=== PATIENT | male | born 1955 | race Caucasian/White ===

== ENCOUNTER 2019-02-01 13:40 | Inpatient (IN) | payer MEDICARE, MEDICAID ==
[~2019-02-01] VITALS: Ht 188 cm; Wt 158.8 kg
--- NOTE | 2019-02-01 06:07 | NUR ---
IV insertion IV access obtained, via clean sterile technique by inserting 22 gauge catheter at right forearm after 3rd attempt. 1st attempt by . 2nd and 3rd by Bettina Covarrubias IV secured properly. No trauma to site. Patient tolerated well. Addendum: 02/02/19 at 0722 by CLAUDIA RATLIFF RN RN date done 02-02-19
[~2019-02-01 13:40] MED LIST: AMLO5TAB15 PO; HYDR25TA4 PO; IBUP800T24 PO; LISI40TA PO; METO-159 PO; SENN-46 PO
[2019-02-01 14:50] LABS: Eosinophils # (auto) 0.2 uL; Lymphocytes # (auto) 1.7 uL; Monocytes # (auto) 0.6 uL; Nucleated Red Blood Cells % 0.1 %; Red Blood Cells 5.04 10^6/uL (4.5-5.90)
[2019-02-01 14:52] LABS: Basophils # (auto) 0 uL; Basophils % (auto) 0.6 % (0.0-2.0); Eosinophils % (auto) 2.6 % (0.0-7.0); Hematocrit 44.7 % (41.0-53.0); Lymphocytes % (auto) 21.4 % (10.0-50.0); Mean Corpuscular Hemoglobin 29.9 pg (28.0-32.0); Mean Corpuscular Hgb Conc. 33.7 g/dL (32.0-36.0); Mean Corpuscular Volume 88.7 fL (80.0-100.0); Monocytes % (auto) 7.6 % (0.0-12.0); Neutrophils # (auto) 5.3 uL; Neutrophils % (auto) 67.8 % (37.0-80.0); White Blood Cell 7.8 10^3/uL (4.4-10.8)
[2019-02-01] MEDS ORDERED: cefTRIAXone 1GM/50ML D5W 50 ML IV ONE (15:00)
[2019-02-01] MEDS ORDERED: CLINDAMYCIN 900MG IV 50 ML IV ONE (15:00)
[2019-02-01 15:07] LABS: Albumin 3.5 g/dL (3.4-5.0); Calcium 8.6 mg/dL (8.5-10.1); Potassium 4.2 mmol/L (3.5-5.1)
[2019-02-01 15:10] LABS: Bilirubin, Total 0.5 mg/dL (0.2-1.0); Total Protein 7.4 g/dL (6.4-8.2)
[2019-02-01] MEDS ORDERED: LIDOCAINE 1% HCL (LOCAL ANESTH.) INJ 20ML MDV IJ ONE (15:15)
[2019-02-01] MEDS ORDERED: TETANUS-DIPTH-ACEL PERTUSSIS 0.5ML SYRG IM ONE (16:00)
[2019-02-01 16:37] LABS: Platelet Count (auto) 498 10^3/uL (140-450)
[2019-02-01] MEDS ORDERED: NITROGLYCERIN 0.4 MG SL TAB SL PRN (18:30)
[2019-02-01] MEDS ORDERED: MORPHINE SULF INJ 2 MG/ML SYRINGE 1ML IV PRN ×2 (18:30)
[2019-02-01] MEDS ORDERED: VANCOMYCIN PER PHARMACY 0 MG IV SCH (18:30)
[2019-02-01] MEDS ORDERED: ONDANSETRON HCL 4 MG/2 ML VIAL IV PRN (18:30)
[2019-02-01] MEDS ORDERED: DOCUSATE SOD 100 MG CAP PO PRN (18:30)
[2019-02-01] MEDS ORDERED: ACETAMINOPHEN 500 MG TAB PO PRN (18:30)
[2019-02-01] MEDS ORDERED: HYDROcodone-ACET 5/325MG TAB PO PRN (18:30)
[2019-02-01] MEDS ORDERED: VANCOMYCIN 1GM/250ML 250 ML IV SCH (19:00)
--- NOTE | 2019-02-01 20:08 | NUR ---
OPENING NOTES RECEIVED PT FROM ED WITH NO SBAR HANDOFF REPORT. PT IS AWAKE, ALERT, AND ORIENTATED X 4 WITH NO S/S OF DISTRESS NOR PAIN. NO S/S OF SOB. FAMILY IS AT BEDSIDE. BED IS IN LOWEST POSITION WITH SIDE RAILS UP X2, BED BRAKE ARE LOCKED AND CALL LIGHT IS WITH IN REACH. HOB IS 30 DEGREES. WILL MONITOR Q 1HR.
[2019-02-01] MEDS ORDERED: APIX2.5T PO (20:59)
[2019-02-01 22:00] VITALS: BP 153/88
[2019-02-01] MEDS: METOPROLOL TARTRATE 25 MG TAB PO SCH (22:26)
[2019-02-01] MEDS: LISINOPRIL 20 MG TAB PO SCH (22:27)
[2019-02-02] MEDS: VANCOMYCIN 1GM/250ML 250 ML IV SCH ×3 (04:59→21:03)
[2019-02-02 05:54] VITALS: BP 131/88
[2019-02-02 06:40] LABS: Basophils # (auto) 0 uL; Hemoglobin 15.1 g/dL (13.5-17.5)
[2019-02-02 06:42] LABS: Basophils % (auto) 0.5 % (0.0-2.0); Eosinophils # (auto) 0.2 uL; Eosinophils % (auto) 2.2 % (0.0-7.0); Hematocrit 45.1 % (41.0-53.0); Lymphocytes # (auto) 1.6 uL; Lymphocytes % (auto) 22.4 % (10.0-50.0); Mean Corpuscular Hgb Conc. 33.5 g/dL (32.0-36.0); Mean Corpuscular Volume 89.6 fL (80.0-100.0); Monocytes # (auto) 0.7 uL; Monocytes % (auto) 9.5 % (0.0-12.0); Neutrophils # (auto) 4.8 uL; Neutrophils % (auto) 65.4 % (37.0-80.0); Red Blood Cells 5.03 10^6/uL (4.5-5.90); Red Cell Distribution Width 14.2 % (11.8-14.3); White Blood Cell 7.3 10^3/uL (4.4-10.8)
[2019-02-02 06:57] LABS: Calcium 8.5 mg/dL (8.5-10.1); Potassium 4.5 mmol/L (3.5-5.1)
[2019-02-02 07:07] LABS: Platelet Count (auto) 489 10^3/uL (140-450)
--- NOTE | 2019-02-02 07:19 | NUR ---
closing notes endorsed care to day shift nurse, Heidi.
[2019-02-02 08:00] VITALS: BP 121/77
[2019-02-02 08:30] VITALS: BP 121/77
[2019-02-02] MEDS: METOPROLOL TARTRATE 25 MG TAB PO SCH ×2 (10:02→22:29)
[2019-02-02] MEDS: ASPirin 81 mg TAB PO SCH (10:02)
[2019-02-02] MEDS: cefTRIAXone 1GM/50ML D5W 50 ML IV SCH (10:02)
[2019-02-02] MEDS: amLODIPine BESYLATE 5 MG TAB PO SCH (10:03)
[2019-02-02] MEDS: FAMOTIDINE 20 MG TAB PO SCH (10:03)
[2019-02-02] MEDS: LISINOPRIL 20 MG TAB PO SCH ×2 (10:03→22:29)
[2019-02-02 12:51] VITALS: BP 147/82
--- NOTE | 2019-02-02 15:00 | NUR ---
Patient's son wants his father moved The [employer] spoke with the son because he wanted to have his father removed from the room because the patient in bed B was having bowel movements. I went to the room and had the son come out so B bed would not hear the conversation. The patient's son was aggravated that the patient in B bed was having bowel movements and the room "smelled so bad it made me gag." He stated he should not have to stay in a room where the patient was "shitting every 2 minutes" loud enough for the patient's in B bed to hear. I told him that the room in which he could move him had family that brought children in and it was decided that we would not move him. Spoke with Jessica and we found a room that the patient could be moved to in 288A that was more compatible. I had moved the patient to room 288A with the help of Dominguez KIM. I thanked him for helping me and the son of the patient said in a high pitch voice, mockingly, "thank you, Dominguez". When I went into the room the patient apologized for his son's behavior.
[2019-02-02 16:48] VITALS: BP 120/74
--- NOTE | 2019-02-02 19:30 | NUR ---
Opening Shift Note Assumed care of patient, awake and alert. No S/S of distress/SOB or pain. Instructed on POC and to call for assist PRN, will continue to monitor for changes Q1hr and PRN.
[2019-02-02 22:00] VITALS: BP 124/74
[2019-02-03 05:00] VITALS: BP 119/63
--- NOTE | 2019-02-03 05:00 | NUR ---
Reminded lab regarding vanco trough which was ordered at 0400. Will continue to monitor.
[2019-02-03 06:28] LABS: Basophils # (auto) 0 uL; Basophils % (auto) 0.7 % (0.0-2.0); Lymphocytes # (auto) 1.7 uL; Monocytes # (auto) 0.5 uL; Neutrophils # (auto) 3.9 uL; White Blood Cell 6.4 10^3/uL (4.4-10.8)
--- NOTE | 2019-02-03 06:28 | NUR ---
Vanco trough is still pending.
[2019-02-03 06:31] LABS: Eosinophils # (auto) 0.2 uL; Eosinophils % (auto) 3.4 % (0.0-7.0); Hematocrit 44.2 % (41.0-53.0); Hemoglobin 14.8 g/dL (13.5-17.5); Lymphocytes % (auto) 26.7 % (10.0-50.0); Mean Corpuscular Hemoglobin 29.7 pg (28.0-32.0); Mean Corpuscular Hgb Conc. 33.5 g/dL (32.0-36.0); Mean Corpuscular Volume 88.7 fL (80.0-100.0); Monocytes % (auto) 8.5 % (0.0-12.0); Neutrophils % (auto) 60.7 % (37.0-80.0); Nucleated Red Blood Cells % 0.1 %; Platelet Count (auto) 439 10^3/uL (140-450); Red Blood Cells 4.98 10^6/uL (4.5-5.90); Red Cell Distribution Width 14.1 % (11.8-14.3)
[2019-02-03 06:37] LABS: Calcium 8.2 mg/dL (8.5-10.1); Potassium 4.2 mmol/L (3.5-5.1)
[2019-02-03 06:39] LABS: BUN/Creatinine Ratio 16.5
--- NOTE | 2019-02-03 06:45 | NUR ---
Informed pharmacy regarding late vanco trough draw. Pharmacy stated they will reschedule it.
[2019-02-03 08:00] VITALS: BP 126/84
[2019-02-03 09:00] VITALS: BP 126/84
[2019-02-03] MEDS: ASPirin 81 mg TAB PO SCH (10:21)
[2019-02-03] MEDS: FAMOTIDINE 20 MG TAB PO SCH (10:22)
[2019-02-03] MEDS: METOPROLOL TARTRATE 25 MG TAB PO SCH ×2 (10:22→21:25)
[2019-02-03] MEDS: amLODIPine BESYLATE 5 MG TAB PO SCH (10:22)
[2019-02-03] MEDS: LISINOPRIL 20 MG TAB PO SCH ×2 (10:23→21:26)
--- NOTE | 2019-02-03 10:48 | NUR ---
SPOKE WITH MIDLINE NURSE ROYAL. INFORMED HER THAT THE PATIENT NEEDS A MIDLINE DUE TO POOR IV ACCESS AND FREQUENT INFILTRATION OF IVs. DR. TAYLOR MADE AWARE.
--- NOTE | 2019-02-03 11:12 | NUR ---
Midline Placement Patient educated on need for midline placement. All risks and benefits explained and all questions and concerns addresses prior to procedure. 18g/10cm midline inserted via right basilic vein using Ultrasound x 1 attempt. Sterile technique utilized. Blood return obtained from single lumen and flushed easily with NS using proper technique. Midline secured with saline lock; biodisc and occlusive dressing applied. Primary RN notified. Midline lot #[id number].
[2019-02-03] MEDS: cefTRIAXone 1GM/50ML D5W 50 ML IV SCH (11:56)
[2019-02-03] MEDS: VANCOMYCIN 1GM/250ML 250 ML IV SCH ×2 (12:16→21:25)
[2019-02-03 13:00] VITALS: BP 129/94
[2019-02-03 13:26] LABS: INR 1.11 (0.9-1.15); Partial Thromboplastin Time 32.5 sec (23.64-32.05)
--- NOTE | 2019-02-03 15:45 | NUR ---
PATIENT OFF UNIT TO OR. NO PAIN OR DISTRESS NOTED AT TIME OF DEPARTURE. REPORT GIVE TO PRE-OP NURSE.
[2019-02-03] MEDS ORDERED: ceFAZolin 1GM/50ML 50 ML IV ONE (16:08)
[2019-02-03] MEDS ORDERED: BUPIVACAINE 0.25% INJ 50ML VIAL ONE (16:09)
[2019-02-03] MEDS ORDERED: LIDOCAINE 1% HCL (LOCAL ANESTH.) INJ 20ML MDV ONE (16:09)
[2019-02-03] MEDS ORDERED: MIDAZOLAM HCL 1MG/1ML-2 ML VIAL ONE (16:30)
[2019-02-03] MEDS ORDERED: fentaNYL CITRATE 100 MCG/2 ML VL ONE (16:30)
[2019-02-03] MEDS ORDERED: DexAMETHasone SOD PHOS 10MG/1ML VIAL INJ ONE (16:35)
[2019-02-03] MEDS ORDERED: PROPOFOL 10 MG/ML 20 ML IV ONE (16:35)
[2019-02-03 17:00] VITALS: BP 149/91
[2019-02-03] MEDS ORDERED: HYDROcodone-ACET 10/325MG TAB PO PRN (17:00)
[2019-02-03] MEDS ORDERED: LABETALOL HCL 5 MG/ML 4ML SYRINGE IV PRN (17:30)
[2019-02-03] MEDS ORDERED: ePHEDrine SULFATE 50 MG/ML AMP IV PRN (17:30)
[2019-02-03] MEDS ORDERED: MORPHINE SULFATE 4 MG/ML SYR/VIAL IV PRN (17:30)
[2019-02-03] MEDS ORDERED: ONDANSETRON HCL 4 MG/2 ML VIAL IV ONE (17:30)
[2019-02-03] MEDS ORDERED: MIDAZOLAM HCL 1MG/1ML-2 ML VIAL IV PRN (17:30)
[2019-02-03] MEDS ORDERED: KETOROLAC TROMETH 15 mg/ml 1ML VL IV ONE (17:30)
[2019-02-03] MEDS ORDERED: HYDROmorphone HCL 2 MG/ML VL IV PRN (17:30)
--- NOTE | 2019-02-03 17:40 | NUR ---
BACK TO ROOM FROM OR. PATIENT TOLERATED PROCEDURE WELL. NO COMPLICATIONS NOTED OR REPORTED TO ME BY RECOVERY ROOM STAFF. PATIENT IS CURRENTLY COMFORTABLE AND NOT EXPERIENCING ANY PAIN. DRESSING TO LEFT FOOT IS CDI. CIRCULATION CHECKS REVEAL GOOD CAPILLARY REFILL. WILL CONTINUE TO MONITOR PATIENT. ENCOURAGED TO CALL IF THEY NEED ANYTHING.
--- NOTE | 2019-02-03 19:27 | NUR ---
Opening Shift Note Assumed care of patient, awake and alert. No S/S of distress/SOB or pain. Family at bedside. Dressing on foot is CDI. Instructed on POC and to call for assist PRN, will continue to monitor for changes Q1hr and PRN.
[2019-02-03 22:00] VITALS: BP 147/80
--- NOTE | 2019-02-03 23:40 | NUR ---
RECEIVED REPORT FROM TARIQ KIM AND ASSUMED CARE OF PT AT THIS TIME.
--- NOTE | 2019-02-03 23:45 | NUR ---
ENDORSED CARE TO JING KIM. PATIENT RESTING AND IN NO DISTRESS.
[2019-02-04 04:57] VITALS: BP 98/64
[2019-02-04 09:00] VITALS: BP 140/80
[2019-02-04] MEDS: FAMOTIDINE 20 MG TAB PO SCH (09:17)
[2019-02-04] MEDS: cefTRIAXone 1GM/50ML D5W 50 ML IV SCH (09:17)
[2019-02-04] MEDS: ASPirin 81 mg TAB PO SCH (09:21)
[2019-02-04] MEDS: amLODIPine BESYLATE 5 MG TAB PO SCH (09:22)
[2019-02-04] MEDS: METOPROLOL TARTRATE 25 MG TAB PO SCH ×2 (09:22→21:52)
[2019-02-04] MEDS: LISINOPRIL 20 MG TAB PO SCH ×2 (09:23→21:52)
[2019-02-04] MEDS: VANCOMYCIN 1GM/250ML 250 ML IV SCH ×2 (10:46→22:33)
--- NOTE | 2019-02-04 12:08 | NUR ---
DR. TAYLOR IN TO SEE PT. PER PT CLEARED FOR DC, AND TO GO HOME ON IV ABX. DR. TAYLOR CONTACTED AND MADE AWARE. Addendum: 02/04/19 at 1303 by Tong Correa RN PER DR. TAYLOR PT TO STAY THE DAY AND DC'D IN AM 02/05/19 Addendum: 02/05/19 at 0943 by Tong Correa RN PO ABX NOT IV
[2019-02-04 13:00] VITALS: BP 151/94
[2019-02-04 17:00] VITALS: BP 131/76
--- NOTE | 2019-02-04 19:35 | NUR ---
Opening Note Assumed pt care from day shift RN. Pt is a/ox4 with no s/s of distress or SOB. Pt is currently laying in bed with foot elevated on pillow with no c/o pain. Discussed POC with pt and the possible d/c. Pt verbalizes understanding. Dressing to L foot is still intact, foot appears to be asymptomatic and has cap refill <3 seconds. Safety measures maintained with side rails up, bed in lowest position and call light within reach. Will continue to monitor for changes q1hr and prn.
[2019-02-04 22:00] VITALS: BP 142/73
[2019-02-05 04:50] VITALS: BP 118/71
--- NOTE | 2019-02-05 07:50 | NUR ---
PT AWAKE, ALERT, ORIENTEDx4 COOPERATIVE OF CARE. DENIES ANY DISCOMFORT. DRESSING TO LEFT FOOT UNATTACHED. WOUND IS CLEAN IN APPEARANCE, NO DRAINAGE, TWO SUTURES PRESENT. DRESSING CHANGED AND SECURED IN PLACE. BED IN LOWEST POSITION, AND LOCKED, CALL LIGHT WITHIN REACH. WILL CONTINUE TO MONITOR.
[2019-02-05 08:50] VITALS: BP 147/96
[2019-02-05] MEDS: cefTRIAXone 1GM/50ML D5W 50 ML IV SCH (09:19)
[2019-02-05] MEDS: VANCOMYCIN 1GM/250ML 250 ML IV SCH (10:58)
[2019-02-05] MEDS: FAMOTIDINE 20 MG TAB PO SCH (10:58)
[2019-02-05] MEDS: ASPirin 81 mg TAB PO SCH (10:58)
[2019-02-05] MEDS: METOPROLOL TARTRATE 25 MG TAB PO SCH (10:59)
[2019-02-05] MEDS: amLODIPine BESYLATE 5 MG TAB PO SCH (10:59)
[2019-02-05] MEDS: LISINOPRIL 20 MG TAB PO SCH (11:00)
[2019-02-05 13:00] VITALS: BP 139/88
[2019-02-05 13:19] VITALS: BP 139/88
--- NOTE | 2019-02-05 14:00 | NUR ---
DISCHARGE INSTRUCTIONS GIVEN TO PT. PT VERBALIZED UNDERSTANDING FOR PRESCRIPTION ORDERS AND FOLLOW UP APPOINTMENTS WITH PRIMARY CARE PROVIDER AND SURGEON. BOTH CONTACT INFORMATION PROVIDED TO PT. EDUCATIONAL MATERIAL PROVIDED, ALL QUESTIONS AND CONCERNS ADDRESSED. IV CATHETER DC'D MIDLINE CATHETER INTACT, NO PHLEBITIS. TELE BOX REMOVED AND RETURNED TO JOY. PT SAFELY ESCORTED OUT OF UNIT VIA WHEELCHAIR. NO DISTRESS NOTED.
== END 2019-02-05 14:15 | disposition home or self-care (01) | DRG 605 ==
LOC: ER 13:46 → TELE 13:47 → TELE-WESTW 20:08
PROVIDERS: ADMIT Nurse Practitioner Acute Care; ATTEND Family Medicine
PROC: 0JCR0ZZ Extirpation of Matter from Left Foot Subcutaneous Tissue and Fascia, Open Approach (ICD-10-PCS; principal; 2019-02-03 16:01)
DX: S90.852A Superficial foreign body, left foot, initial encounter (principal); L03.116 Cellulitis of left lower limb; Z68.41 Body mass index [BMI] 40.0-44.9, adult; I48.91 Unspecified atrial fibrillation; I10 Essential (primary) hypertension; M19.90 Unspecified osteoarthritis, unspecified site; M77.30 Calcaneal spur, unspecified foot; E78.5 Hyperlipidemia, unspecified; G62.9 Polyneuropathy, unspecified; E66.01 Morbid (severe) obesity due to excess calories; I25.10 Atherosclerotic heart disease of native coronary artery without angina pectoris; X58.XXXA Exposure to other specified factors, initial encounter; Z79.899 Other long term (current) drug therapy; Z82.0 Family history of epilepsy and other diseases of the nervous system; Z86.73 Personal history of transient ischemic attack (TIA), and cerebral infarction without residual deficits; Y93.89 Activity, other specified; Y92.89 Other specified places as the place of occurrence of the external cause; Y99.8 Other external cause status; Z87.891 Personal history of nicotine dependence
CPT/HCPCS: 36415; 71045; 73630; 80048; 80053; 80202; 85025; 85610; 85730; 87040; 90471; 90715; 94761; 96365; 96367; 96368; G0378; J0690; J0696; J1100; J2001; J2250; J2704; J3490

== ENCOUNTER → 2019-08-15 | Outpatient (CLI) | payer MEDICARE, MEDICAID ==
[~2019-08-15] MED LIST changes: +APIX2.5T PO; -HYDR25TA4 PO
[2019-08-15 12:07] LABS: Basophils # (auto) 0 uL; Basophils % (auto) 0.5 % (0.0-2.0); Eosinophils # (auto) 0.1 uL; Eosinophils % (auto) 2.5 % (0.0-7.0); Hemoglobin 16.2 g/dL (13.5-17.5); Lymphocytes # (auto) 1.4 uL; Lymphocytes % (auto) 27.6 % (10.0-50.0); Mean Corpuscular Hemoglobin 29.4 pg (28.0-32.0); Mean Corpuscular Hgb Conc. 33.7 g/dL (32.0-36.0); Mean Corpuscular Volume 87.4 fL (80.0-100.0); Monocytes # (auto) 0.4 uL; Monocytes % (auto) 7.7 % (0.0-12.0); Neutrophils # (auto) 3.1 uL; Neutrophils % (auto) 61.7 % (37.0-80.0); Platelet Count (auto) 365 10^3/uL (140-450); Red Blood Cells 5.49 10^6/uL (4.5-5.90); Red Cell Distribution Width 15.3 % (11.8-14.3); Urine Blood Negative /uL (Negative); Urine Specific Gravity 1.024 (1.001-1.035); White Blood Cell 5.1 10^3/uL (4.4-10.8)
[2019-08-15 12:16] LABS: Potassium 4.5 mmol/L (3.5-5.1)
[2019-08-15 12:26] LABS: Free T4 (Free Thyroxine) 0.98 ng/dL (0.89-1.76); Prostate Specific Antigen 1.36 ng/mL (0.0-4.0)
[2019-08-15 12:31] LABS: Albumin 3.8 g/dL (3.4-5.0); BUN/Creatinine Ratio 22.9; Bilirubin, Total 0.7 mg/dL (0.2-1.0); Calcium 8.9 mg/dL (8.5-10.1); Total Protein 7.4 g/dL (6.4-8.2)
== END | disposition home or self-care (01) ==
LOC: LAB 08:39
PROVIDERS: ATTEND Internal Medicine Cardiovascular Disease
DX: Z00.00 Encounter for general adult medical examination without abnormal findings (principal); E03.9 Hypothyroidism, unspecified; K90.9 Intestinal malabsorption, unspecified; C61 Malignant neoplasm of prostate; E29.1 Testicular hypofunction; N39.0 Urinary tract infection, site not specified; D51.9 Vitamin B12 deficiency anemia, unspecified; Z79.899 Other long term (current) drug therapy
CPT/HCPCS: 36415; 80053; 80061; 81003; 82306; 82607; 83036; 83880; 84153; 84403; 84439; 84443; 85025

== ENCOUNTER → 2019-08-16 | Outpatient (CLI) | payer MEDICARE, MEDICAID | END | disposition home or self-care (01) | LOC: LAB 12:44 | PROVIDERS: ATTEND Internal Medicine Cardiovascular Disease | DX: R19.5 Other fecal abnormalities (principal) | CPT/HCPCS: 82270 ==

== ENCOUNTER → 2019-11-28 | Outpatient (CLI) | payer OTHER, MEDICAID ==
[~2019-11-28] MED LIST changes: -LISI40TA PO; +LISI40TA11 PO
[2019-11-28 11:52] LABS: Basophils # (auto) 0 10 ^3/uL (0-0.2); Basophils % (auto) 0.5 % (0.0-2.0); Eosinophils # (auto) 0.1 10 ^3/uL (0-0.8); Eosinophils % (auto) 2.1 % (0.0-7.0); Hematocrit 48.9 % (41.0-53.0); Hemoglobin 16.3 g/dL (13.5-17.5); Lymphocytes # (auto) 1.6 10 ^3/uL (0.4-5.4); Lymphocytes % (auto) 24.2 % (10.0-50.0); Mean Corpuscular Hemoglobin 29.5 pg (28.0-32.0); Mean Corpuscular Hgb Conc. 33.3 g/dL (32.0-36.0); Mean Corpuscular Volume 88.4 fL (80.0-100.0); Monocytes # (auto) 0.6 10 ^3/uL (0-1.3); Monocytes % (auto) 8.6 % (0.0-12.0); Neutrophils # (auto) 4.3 10 ^3/uL (1.6-8.6); Neutrophils % (auto) 64.6 % (37.0-80.0); Nucleated Red Blood Cells % 0.1 %; Platelet Count (auto) 429 10^3/uL (140-450); Red Blood Cells 5.54 10^6/uL (4.5-5.90); Red Cell Distribution Width 14.9 % (11.8-14.3); White Blood Cell 6.6 10^3/uL (4.4-10.8)
[2019-11-28 11:56] LABS: Urine Blood Negative /uL (Negative); Urine Specific Gravity 1.018 (1.001-1.035)
[2019-11-28 12:08] LABS: Calcium 9.1 mg/dL (8.5-10.1); Potassium 4.5 mmol/L (3.5-5.1)
[2019-11-28 12:13] LABS: Free T4 (Free Thyroxine) 1.32 ng/dL (0.89-1.76); Prostate Specific Antigen 1.33 ng/mL (0.0-4.0)
[2019-11-28 12:14] LABS: T3 Total 0.91 ng/mL (0.60-1.81)
[2019-11-28 12:15] LABS: Albumin 3.5 g/dL (3.4-5.0); BUN/Creatinine Ratio 18.1; Bilirubin, Total 0.7 mg/dL (0.2-1.0); Total Protein 7.4 g/dL (6.4-8.2)
== END | disposition home or self-care (01) ==
LOC: Rad HDHVI 08:07
PROVIDERS: ATTEND Internal Medicine Cardiovascular Disease
DX: Z00.00 Encounter for general adult medical examination without abnormal findings (principal); I08.8 Other rheumatic multiple valve diseases; E03.9 Hypothyroidism, unspecified; K90.9 Intestinal malabsorption, unspecified; C61 Malignant neoplasm of prostate; E29.1 Testicular hypofunction; N39.0 Urinary tract infection, site not specified; D51.9 Vitamin B12 deficiency anemia, unspecified; I10 Essential (primary) hypertension; R73.03 Prediabetes; R79.89 Other specified abnormal findings of blood chemistry; Z79.899 Other long term (current) drug therapy
CPT/HCPCS: 36415; 80053; 80061; 81003; 82043; 82306; 82607; 83036; 84153; 84403; 84439; 84443; 84480; 85025; 93306

== ENCOUNTER → 2020-03-21 | Outpatient (CLI) | payer OTHER, MEDICAID ==
[2020-03-21 10:16] LABS: Cholesterol 141 mg/dL (< 200); HDL Cholesterol 37 mg/dL (40-59); LDL Cholesterol 95 mg/dL (< 100); Triglycerides 112 mg/dL (< 150)
== END | disposition home or self-care (01) ==
LOC: LAB 09:27
PROVIDERS: ATTEND Internal Medicine
DX: I10 Essential (primary) hypertension (principal); R73.03 Prediabetes
CPT/HCPCS: 36415; 80061; 82043

== ENCOUNTER → 2020-06-19 | Outpatient (CLI) | payer OTHER, MEDICAID ==
[2020-06-19 12:12] LABS: Albumin 3.5 g/dL (3.4-5.0)
[2020-06-19 12:18] LABS: Bilirubin, Direct 0.3 mg/dL (0-0.2); Total Protein 7.5 g/dL (6.4-8.2)
== END | disposition home or self-care (01) ==
LOC: LAB 09:55
PROVIDERS: ATTEND Internal Medicine Cardiovascular Disease
DX: E78.00 Pure hypercholesterolemia, unspecified (principal); R94.4 Abnormal results of kidney function studies; E11.9 Type 2 diabetes mellitus without complications
CPT/HCPCS: 36415; 80061; 80076

== ENCOUNTER → 2020-09-09 | Outpatient (CLI) | payer OTHER, MEDICAID ==
[~2020-09-09] MED LIST changes: +AMLO-489 PO; -AMLO5TAB15 PO; -IBUP800T24 PO; +IBUP800T26 PO; +SENN-36 PO; -SENN-46 PO
[2020-09-09 13:34] LABS: Albumin 3.6 g/dL (3.4-5.0); Bilirubin, Direct 0.3 mg/dL (0-0.2); Bilirubin, Total 0.9 mg/dL (0.2-1.0); Total Protein 7.3 g/dL (6.4-8.2)
== END | disposition home or self-care (01) ==
LOC: LAB 10:52
PROVIDERS: ATTEND Internal Medicine
DX: E78.5 Hyperlipidemia, unspecified (principal)
CPT/HCPCS: 36415; 80061; 80076

== ENCOUNTER → 2021-01-14 | Outpatient (CLI) | payer OTHER, MEDICAID ==
[~2021-01-14] VITALS: Ht 188 cm; Wt 147.4 kg
[~2021-01-14] MED LIST changes: +ADENOSINE 90 MG/30 ML INJ IV ONE
== END | disposition home or self-care (01) ==
LOC: Rad HDHVI 09:38
PROVIDERS: ATTEND Internal Medicine Cardiovascular Disease
DX: I48.0 Paroxysmal atrial fibrillation (principal); I10 Essential (primary) hypertension; E03.9 Hypothyroidism, unspecified; D68.59 Other primary thrombophilia; E66.9 Obesity, unspecified; R06.02 Shortness of breath
CPT/HCPCS: 78452; 93017; 96374; A9500; J0153

== ENCOUNTER → 2021-01-31 | Outpatient (CLI) | payer OTHER, MEDICAID ==
[~2021-01-31] MED LIST changes: -ADENOSINE 90 MG/30 ML INJ IV ONE
== END | disposition home or self-care (01) ==
LOC: Rad HDHVI 14:32
PROVIDERS: ATTEND Internal Medicine Cardiovascular Disease
DX: I10 Essential (primary) hypertension (principal); R06.02 Shortness of breath
CPT/HCPCS: 93306

== ENCOUNTER → 2021-10-07 | Outpatient (CLI) | payer OTHER, MEDICAID ==
[2021-10-07 08:02] LABS: Eosinophils # (auto) 0.2 10 ^3/uL (0-0.8); Monocytes # (auto) 0.6 10 ^3/uL (0-1.3); Neutrophils # (auto) 4.7 10 ^3/uL (1.6-8.6)
[2021-10-07 08:04] LABS: Basophils # (auto) 0 10 ^3/uL (0-0.2); Basophils % (auto) 0.7 % (0.0-2.0); Eosinophils % (auto) 2.4 % (0.0-7.0); Hemoglobin 16.4 g/dL (13.5-17.5); Lymphocytes # (auto) 1.7 10 ^3/uL (0.4-5.4); Lymphocytes % (auto) 23.3 % (10.0-50.0); Mean Corpuscular Hemoglobin 29.5 pg (28.0-32.0); Mean Corpuscular Hgb Conc. 34.2 g/dL (32.0-36.0); Mean Corpuscular Volume 86.4 fL (80.0-100.0); Monocytes % (auto) 7.9 % (0.0-12.0); Neutrophils % (auto) 65.7 % (37.0-80.0); Nucleated Red Blood Cells % 0.1 %; Red Blood Cells 5.55 10^6/uL (4.5-5.90); Red Cell Distribution Width 14.6 % (11.8-14.3); White Blood Cell 7.2 10^3/uL (4.4-10.8)
[2021-10-07 08:12] LABS: Urine Bacteria FEW /hpf (None Seen); Urine Blood Negative /uL (Negative); Urine Mucus FEW (None Seen); Urine Specific Gravity 1.011 (1.001-1.035); Urine WBC <1 /hpf (0 - 3)
[2021-10-07 08:49] LABS: Albumin 3.5 g/dL (3.4-5.0); Calcium 9.2 mg/dL (8.5-10.1); Potassium 4.2 mmol/L (3.5-5.1)
[2021-10-07 08:56] LABS: BUN/Creatinine Ratio 14.4; Bilirubin, Total 0.7 mg/dL (0.2-1.0); Total Protein 7.1 g/dL (6.4-8.2)
== END | disposition home or self-care (01) ==
LOC: LAB 07:23
PROVIDERS: ATTEND Internal Medicine
DX: Z00.00 Encounter for general adult medical examination without abnormal findings (principal); R73.03 Prediabetes; E78.5 Hyperlipidemia, unspecified; I10 Essential (primary) hypertension; E03.9 Hypothyroidism, unspecified
CPT/HCPCS: 36415; 80053; 80061; 81001; 82043; 83036; 84153; 84443; 85025

== ENCOUNTER → 2022-02-17 | Outpatient (CLI) | payer OTHER, MEDICAID ==
[2022-02-17 09:16] LABS: Basophils # (auto) 0 10 ^3/uL (0-0.2); Basophils % (auto) 0.7 % (0.0-2.0); Eosinophils # (auto) 0.1 10 ^3/uL (0-0.8); Eosinophils % (auto) 1.8 % (0.0-7.0); Hematocrit 47.5 % (41.0-53.0); Hemoglobin 15.3 g/dL (13.5-17.5); Lymphocytes # (auto) 1.3 10 ^3/uL (0.4-5.4); Lymphocytes % (auto) 20.6 % (10.0-50.0); Mean Corpuscular Hgb Conc. 32.2 g/dL (32.0-36.0); Mean Corpuscular Volume 86.8 fL (80.0-100.0); Monocytes # (auto) 0.4 10 ^3/uL (0-1.3); Monocytes % (auto) 6.8 % (0.0-12.0); Neutrophils # (auto) 4.4 10 ^3/uL (1.6-8.6); Neutrophils % (auto) 70.1 % (37.0-80.0); Nucleated Red Blood Cells % 0.1 %; Red Blood Cells 5.48 10^6/uL (4.5-5.90); Red Cell Distribution Width 14.4 % (11.8-14.3); White Blood Cell 6.3 10^3/uL (4.4-10.8)
[2022-02-17 09:39] LABS: Albumin 3.8 g/dL (3.4-5.0); Bilirubin, Direct 0.3 mg/dL (0-0.2)
[2022-02-17 09:42] LABS: Total Protein 7.4 g/dL (6.4-8.2)
== END | disposition home or self-care (01) ==
LOC: LAB 08:57
PROVIDERS: ATTEND Internal Medicine
DX: Z12.11 Encounter for screening for malignant neoplasm of colon (principal); E78.5 Hyperlipidemia, unspecified; R73.03 Prediabetes
CPT/HCPCS: 36415; 80076; 82270; 82565; 84520; 85025

== ENCOUNTER → 2022-06-08 | Outpatient (CLI) | payer OTHER, MEDICAID ==
[2022-06-08 08:25] LABS: Basophils # (auto) 0 10 ^3/uL (0-0.2); Basophils % (auto) 0.7 % (0.0-2.0); Eosinophils # (auto) 0.2 10 ^3/uL (0-0.8); Eosinophils % (auto) 3.3 % (0.0-7.0); Hematocrit 47.2 % (41.0-53.0); Hemoglobin 15.6 g/dL (13.5-17.5); Lymphocytes # (auto) 1.1 10 ^3/uL (0.4-5.4); Lymphocytes % (auto) 20.2 % (10.0-50.0); Mean Corpuscular Hemoglobin 28.8 pg (28.0-32.0); Mean Corpuscular Hgb Conc. 33.1 g/dL (32.0-36.0); Monocytes # (auto) 0.4 10 ^3/uL (0-1.3); Monocytes % (auto) 7.7 % (0.0-12.0); Neutrophils # (auto) 3.7 10 ^3/uL (1.6-8.6); Neutrophils % (auto) 68.1 % (37.0-80.0); Nucleated Red Blood Cells % 0.1 %; Red Blood Cells 5.42 10^6/uL (4.5-5.90); Red Cell Distribution Width 15.7 % (11.8-14.3); White Blood Cell 5.4 10^3/uL (4.4-10.8)
[2022-06-08 13:15] LABS: Albumin 3.5 g/dL (3.4-5.0); Bilirubin, Direct 0.2 mg/dL (0-0.2); Bilirubin, Total 0.8 mg/dL (0.2-1.0); Total Protein 7.1 g/dL (6.4-8.2)
== END | disposition home or self-care (01) ==
LOC: LAB 08:10
PROVIDERS: ATTEND Internal Medicine
DX: R79.89 Other specified abnormal findings of blood chemistry (principal); R73.03 Prediabetes
CPT/HCPCS: 36415; 80076; 85025

== ENCOUNTER → 2022-06-10 | Outpatient (CLI) | payer OTHER, MEDICAID | END | disposition home or self-care (01) | LOC: LAB 13:19 | PROVIDERS: ATTEND Internal Medicine | DX: Z12.11 Encounter for screening for malignant neoplasm of colon (principal) | CPT/HCPCS: 82270 ==

== ENCOUNTER → 2022-09-16 | Outpatient (CLI) | payer OTHER ==
[2022-09-16 08:36] LABS: Calcium 9.2 mg/dL (8.5-10.1); Potassium 4.1 mmol/L (3.5-5.1)
[2022-09-16 08:44] LABS: Albumin 3.7 g/dL (3.4-5.0); BUN/Creatinine Ratio 19.1; Bilirubin, Total 1.4 mg/dL (0.2-1.0); Total Protein 6.9 g/dL (6.4-8.2); Uric Acid 8.8 mg/dL (3.5-7.2)
== END | disposition home or self-care (01) ==
LOC: LAB 07:47
PROVIDERS: ATTEND Internal Medicine
DX: R73.03 Prediabetes (principal)
CPT/HCPCS: 36415; 80053; 80061; 83036; 84153; 84550; 85652

== ENCOUNTER → 2022-11-09 | Outpatient (CLI) | payer OTHER ==
[2022-11-09 08:57] LABS: BUN/Creatinine Ratio 18.2 (10.0-20.0); Calcium 9.2 mg/dL (8.5-10.1); Potassium 4.4 mmol/L (3.5-5.1); Uric Acid 7.1 mg/dL (3.5-7.2)
== END | disposition home or self-care (01) ==
LOC: LAB 08:05
PROVIDERS: ATTEND Internal Medicine
DX: E11.9 Type 2 diabetes mellitus without complications (principal); M10.9 Gout, unspecified
CPT/HCPCS: 36415; 80048; 84550

== ENCOUNTER → 2023-01-13 | Outpatient (CLI) | payer OTHER ==
[~2023-01-13] VITALS: Ht 188 cm; Wt 139.3 kg
[~2023-01-13] MED LIST changes: +ADENOSINE 117 MG in GIVE UN-DILUTED 0 ML IV ONE; +ADENOSINE 90 MG/30 ML INJ IV ONE; -AMLO-489 PO; +AMLO1TAB22 PO; +IBUP-1455 PO; -IBUP800T26 PO; -LISI40TA11 PO; +LISI40TA16 PO
== END | disposition home or self-care (01) ==
LOC: Rad HDHVI 13:50
PROVIDERS: ATTEND Internal Medicine Cardiovascular Disease
DX: Z01.810 Encounter for preprocedural cardiovascular examination (principal); E78.00 Pure hypercholesterolemia, unspecified; I11.0 Hypertensive heart disease with heart failure; I50.23 Acute on chronic systolic (congestive) heart failure; I48.0 Paroxysmal atrial fibrillation
CPT/HCPCS: 78452; 93005; 96374; 96375; A9500; J0153

== ENCOUNTER → 2023-06-01 | Outpatient (CLI) | payer OTHER ==
[~2023-06-01] MED LIST changes: -ADENOSINE 117 MG in GIVE UN-DILUTED 0 ML IV ONE; -ADENOSINE 90 MG/30 ML INJ IV ONE; +ALL100T PO; +LEV100T PO; +MECL25CH85 PO; +METO-158 PO; -METO-159 PO; +SILD100T57 PO
[2023-06-01 11:04] LABS: Alanine Aminotransferase 19 U/L (7-40); Albumin 4.1 g/dL (3.2-4.8); Alkaline Phosphatase 95 U/L (46-116); Anion Gap 5 (5-15); Aspartate Aminotransferase 16 U/L (13-40); BUN/Creatinine Ratio 16.3 (10.0-20.0); Bilirubin, Total 0.7 mg/dL (0.2-1.0); Blood Urea Nitrogen 17 mg/dL (9-23); Calcium 9.4 mg/dL (8.5-10.1); Carbon Dioxide 27 mmol/L (20-30); Chloride 107 mmol/L (98-107); Glucose 102 mg/dL (74-106); Potassium 4.1 mmol/L (3.5-5.1); Sodium 139 mmol/L (136-145); Total Protein 6.5 g/dL (5.7-8.2)
[2023-06-01 11:56] LABS: Creatinine, Urine 114.7 mg/dL (30.0-125.0)
[2023-06-01 13:18] LABS: Uric Acid 6.1 mg/dL (3.7-9.2)
== END | disposition home or self-care (01) ==
LOC: LAB 08:35
PROVIDERS: ATTEND Internal Medicine
DX: I10 Essential (primary) hypertension (principal); R73.03 Prediabetes
CPT/HCPCS: 36415; 80053; 82043; 82570; 83036; 84550

== ENCOUNTER → 2023-08-31 | Outpatient (CLI) | payer OTHER ==
[2023-08-31 08:18] LABS: Triglycerides 148 mg/dL (< 150)
[2023-08-31 08:19] LABS: LDL Cholesterol 92 mg/dL (< 100)
[2023-08-31 08:20] LABS: Cholesterol 149 mg/dL (< 200); HDL Cholesterol 34 mg/dL (40-59)
== END | disposition home or self-care (01) ==
LOC: LAB 07:36
PROVIDERS: ATTEND Internal Medicine
DX: I10 Essential (primary) hypertension (principal); R73.03 Prediabetes
CPT/HCPCS: 36415; 80061

== ENCOUNTER → 2023-11-30 | Outpatient (CLI) | payer OTHER ==
[~2023-11-30] MED LIST changes: +SILD100T PO; -SILD100T57 PO
[2023-11-30 07:37] LABS: Basophils # (auto) 0 10 ^3/uL (0-0.2); Basophils % (auto) 0.4 % (0.0-2.0); Eosinophils # (auto) 0.2 10 ^3/uL (0-0.8); Eosinophils % (auto) 2.6 % (0.0-7.0); Hematocrit 49.4 % (41.0-53.0); Hemoglobin 16.8 g/dL (13.5-17.5); Lymphocytes # (auto) 1.3 10 ^3/uL (0.4-5.4); Lymphocytes % (auto) 22.3 % (10.0-50.0); Mean Corpuscular Hemoglobin 30.1 pg (28.0-32.0); Mean Corpuscular Volume 88.5 fL (80.0-100.0); Monocytes # (auto) 0.5 10 ^3/uL (0-1.3); Monocytes % (auto) 7.6 % (0.0-12.0); Neutrophils % (auto) 67.1 % (37.0-80.0); Nucleated Red Blood Cells % 0.3 %; Red Blood Cells 5.57 10^6/uL (4.5-5.90); Red Cell Distribution Width 15.9 % (11.8-14.3); White Blood Cell 5.9 10^3/uL (4.4-10.8)
[2023-11-30 08:16] LABS: Triglycerides 108 mg/dL (< 150)
[2023-11-30 08:17] LABS: LDL Cholesterol 84 mg/dL (< 100)
[2023-11-30 08:18] LABS: Cholesterol 139 mg/dL (< 200); HDL Cholesterol 39 mg/dL (40-59)
[2023-11-30 08:47] LABS: Prostate Specific Antigen 2.45 ng/mL (0.0-4.0)
== END | disposition home or self-care (01) ==
LOC: LAB 07:17
PROVIDERS: ATTEND Internal Medicine
DX: Z12.5 Encounter for screening for malignant neoplasm of prostate (principal); E66.9 Obesity, unspecified; Z79.899 Other long term (current) drug therapy
CPT/HCPCS: 36415; 80061; 82306; 82607; 84153; 84443; 85025

== ENCOUNTER 2024-02-28 07:15 | Inpatient (IN) | payer OTHER ==
[2024-02-25 11:13] LABS: Basophils # (auto) 0 10 ^3/uL (0-0.2); Basophils % (auto) 0.6 % (0.0-2.0); Eosinophils # (auto) 0.1 10 ^3/uL (0-0.8); Eosinophils % (auto) 1.9 % (0.0-7.0); Hemoglobin 16.8 g/dL (13.5-17.5); Lymphocytes # (auto) 1.5 10 ^3/uL (0.4-5.4); Lymphocytes % (auto) 23.1 % (10.0-50.0); Mean Corpuscular Hemoglobin 29.7 pg (28.0-32.0); Mean Corpuscular Hgb Conc. 33.5 g/dL (32.0-36.0); Mean Corpuscular Volume 88.7 fL (80.0-100.0); Monocytes # (auto) 0.6 10 ^3/uL (0-1.3); Monocytes % (auto) 9.2 % (0.0-12.0); Neutrophils # (auto) 4.1 10 ^3/uL (1.6-8.6); Neutrophils % (auto) 65.2 % (37.0-80.0); Nucleated Red Blood Cells % 0.2 %; Platelet Count (auto) 446 10^3/uL (140-450); Red Blood Cells 5.64 10^6/uL (4.5-5.90); Red Cell Distribution Width 15.5 % (11.8-14.3); White Blood Cell 6.3 10^3/uL (4.4-10.8)
[2024-02-25 11:29] LABS: INR 1.18 (0.9-1.15); Partial Thromboplastin Time 31.1 SEC (24.5-34.5); Prothrombin Time 12.4 sec (9.3-11.8)
[2024-02-25 11:44] LABS: Albumin 4.1 g/dL (3.2-4.8); Alkaline Phosphatase 111 U/L (46-116); Anion Gap 2 (5-15); Aspartate Aminotransferase 21 U/L (13-40); Blood Urea Nitrogen 15 mg/dL (9-23); Calcium 9.8 mg/dL (8.7-10.4); Carbon Dioxide 30 mmol/L (20-30); Chloride 107 mmol/L (98-107); Glucose 96 mg/dL (74-106); Potassium 4.4 mmol/L (3.5-5.1); Sodium 139 mmol/L (136-145); Total Protein 6.6 g/dL (5.7-8.2)
[2024-02-25 11:55] LABS: Alanine Aminotransferase 24 U/L (7-40)
[~2024-02-28] VITALS: Ht 188 cm; Wt 154.6 kg
[2024-02-28] VITALS (9 sets, daily range): BP systolic 100–129; BP diastolic 56–74; PULSE 69–88; RESP 16–18; TEMP 97.5–98.7; O2SAT 93–95
[~2024-02-28 07:15] MED LIST changes: -LEV100T PO; +LEVO-849 PO
[2024-02-28] MEDS: BUPIVACAINE 0.25% INJ 50ML VIAL ONE (07:21)
[2024-02-28] MEDS ORDERED: MORPHINE SULF PF 5 MG/10 ML VIAL ONE (07:31)
[2024-02-28] MEDS ORDERED: KETOROLAC TROMETH 30 MG/ML 1ML VIAL ONE ×2 (07:31→07:56)
[2024-02-28] MEDS ORDERED: fentaNYL CITRATE 100 MCG/2 ML VL ONE (07:56)
[2024-02-28] MEDS ORDERED: DexAMETHasone SOD PHOS 10MG/1ML VIAL INJ ONE (07:56)
[2024-02-28] MEDS ORDERED: PHENYLEPHRINE HCL 10 MG/ML VL ONE (07:56)
[2024-02-28] MEDS ORDERED: ePHEDrine SULFATE 50 MG/ML AMP ONE (07:56)
[2024-02-28] MEDS ORDERED: ONDANSETRON HCL 4 MG/2 ML VIAL ONE (07:56)
[2024-02-28] MEDS ORDERED: MIDAZOLAM HCL 2MG/2ML 2ml VIAL (1mg/ml) ONE ×2 (07:56→08:20)
[2024-02-28] MEDS ORDERED: KETAMINE 50mg/ML 1ml syringe ONE (07:57)
[2024-02-28] MEDS: CELECOXIB 100 MG CAP PO ONE (08:00)
[2024-02-28] MEDS: ACETAMINOPHEN IV 1000 MG/100ML (10MG/ML) IV ONE (08:00)
[2024-02-28] MEDS: PREGABALIN CAPSULE 75 MG CAP PO ONE (08:00)
[2024-02-28] MEDS ORDERED: ceFAZolin 1GM VL ONE (08:16)
[2024-02-28] MEDS ORDERED: IBUPROFEN 800 MG TAB PO PRN (09:45)
[2024-02-28] MEDS ORDERED: HYDROmorphone HCL 2 MG/ML VL/or syr IV PRN (09:45)
[2024-02-28] MEDS ORDERED: ONDANSETRON HCL 4 MG/2 ML VIAL IV PRN (09:45)
[2024-02-28] MEDS ORDERED: MORPHINE SULFATE INJ 2 MG/ml SYRG IV PRN (09:45)
[2024-02-28] MEDS ORDERED: NITROGLYCERIN 0.4 MG SL TAB SL PRN (09:45)
[2024-02-28] MEDS ORDERED: HYDROcodone-ACET 5/325MG TAB PO PRN (09:45)
[2024-02-28] MEDS ORDERED: HYDROcodone-ACET 10/325MG TAB PO PRN (09:45)
[2024-02-28] MEDS ORDERED: BISACODYL 5 MG EC TAB PO PRN (09:45)
[2024-02-28] MEDS ORDERED: METOPROLOL TARTRATE 50 MG TAB PO SCH (10:00)
[2024-02-28] MEDS ORDERED: diphenhdrAMINE HCL 50 MG/1 ML VL IV PRN (10:15)
[2024-02-28] MEDS ORDERED: DexAMETHasone SOD PHOS 10MG/1ML VIAL INJ IV PRN (10:15)
[2024-02-28] MEDS ORDERED: NALOXONE HCL 0.4 MG/ML VIAL IV PRN (10:15)
[2024-02-28] MEDS ORDERED: KETOROLAC TROMETH 30 MG/ML 1ML VIAL IV PRN (10:15)
[2024-02-28] MEDS: TRANEXAMIC ACID 20 ML ONE (11:29)
[2024-02-28] MEDS: VANCOMYCIN HCL 1000 MG VL ONE (11:30)
[2024-02-28] MEDS: ceFAZolin 2 GM/D5W50ml 50 ML IV ONE (11:30)
[2024-02-28] MEDS ORDERED: ACCU-CHEK COMFORT CURVE STRIP VI SCH (11:30)
[2024-02-28] MEDS: ACETAMINOPHEN IV 100 ML IV ONE (17:10)
[2024-02-28] MEDS: CEFEPIME 1GM/ 50ML 50 ML IV ONE (17:10)
[2024-02-28] MEDS: ONDANSETRON HCL 4 MG/2 ML VIAL IV ONE (17:11)
[2024-02-28] MEDS: amLODIPine BESYLATE 5 MG TAB PO SCH (18:20)
[2024-02-28] MEDS: DOCUSATE SOD 100 MG CAP PO SCH (18:20)
[2024-02-28] MEDS: LEVOTHYROXINE SODIUM 100 MCG TAB PO SCH (18:20)
[2024-02-28] MEDS: LACTATED RINGER'S 1,000 ML IV SCH (18:20)
[2024-02-28] MEDS: SODIUM CHLOR 0.9% PF (SALINE LOCK) 10ML VIAL/SYR IV SCH (18:20)
[2024-02-28] MEDS ORDERED: SILDENAFIL CITRATE 100 MG PO PRN (19:00)
[2024-02-28] MEDS: CEFEPIME 2GM/50ML 50 ML IV SCH (21:56)
[2024-02-28] MEDS: LISINOPRIL 20 MG TAB PO SCH (22:00)
[2024-02-28] MEDS: METOPROLOL TARTRATE 25 MG TAB PO SCH (22:00)
[2024-02-28] MEDS ORDERED: MECLIZINE HCL 25 MG TAB PO PRN (22:00)
[2024-02-28] MEDS: ceFAZolin 2 GM/D5W50ml 50 ML IV SCH (23:30)
[2024-02-29] VITALS (21 sets, daily range): BP systolic 99–148; BP diastolic 49–96; PULSE 18–104; RESP 17–20; TEMP 97.8–98.5; O2SAT 93–98
[2024-02-29 06:11] LABS: Hemoglobin 12.9 g/dL (13.5-17.5)
[2024-02-29 06:18] LABS: Hematocrit 38.3 % (41.0-53.0)
[2024-02-29] MEDS: SENNA 8.6 MG TAB PO SCH (06:23)
[2024-02-29 06:33] LABS: Alanine Aminotransferase 15 U/L (7-40); Albumin 3.4 g/dL (3.2-4.8); Alkaline Phosphatase 84 U/L (46-116); Anion Gap 10 (5-15); Aspartate Aminotransferase 13 U/L (13-40); BUN/Creatinine Ratio 14.5 (10.0-20.0); Bilirubin, Total 0.6 mg/dL (0.2-1.0); Blood Urea Nitrogen 25 mg/dL (9-23); Calcium 8.6 mg/dL (8.7-10.4); Carbon Dioxide 22 mmol/L (20-30); Chloride 100 mmol/L (98-107); Glucose 179 mg/dL (74-106); Potassium 4.4 mmol/L (3.5-5.1); Total Protein 5.5 g/dL (5.7-8.2)
[2024-02-29 06:37] LABS: Sodium 132 mmol/L (136-145)
[2024-03-01] VITALS (8 sets, daily range): BP systolic 124–149; BP diastolic 68–87; PULSE 74–86; RESP 18–20; TEMP 97.5–98.6; O2SAT 95–98
[2024-03-01 07:10] LABS: Basophils # (auto) 0 10 ^3/uL (0-0.2); Basophils % (auto) 0.2 % (0.0-2.0); Eosinophils # (auto) 0 10 ^3/uL (0-0.8); Eosinophils % (auto) 0.1 % (0.0-7.0); Hemoglobin 13.1 g/dL (13.5-17.5); Lymphocytes # (auto) 1.9 10 ^3/uL (0.4-5.4); Lymphocytes % (auto) 12.7 % (10.0-50.0); Monocytes # (auto) 1.3 10 ^3/uL (0-1.3)
[2024-03-01 07:13] LABS: Hematocrit 38.8 % (41.0-53.0); Mean Corpuscular Hemoglobin 29.7 pg (28.0-32.0); Mean Corpuscular Hgb Conc. 33.8 g/dL (32.0-36.0); Monocytes % (auto) 8.9 % (0.0-12.0); Neutrophils # (auto) 11.7 10 ^3/uL (1.6-8.6); Neutrophils % (auto) 78.1 % (37.0-80.0); Platelet Count (auto) 562 10^3/uL (140-450); Red Blood Cells 4.41 10^6/uL (4.5-5.90); Red Cell Distribution Width 15.5 % (11.8-14.3)
[2024-03-01 07:39] LABS: Anion Gap 7 (5-15); Carbon Dioxide 23 mmol/L (20-30); Chloride 103 mmol/L (98-107); Potassium 4.4 mmol/L (3.5-5.1); Sodium 133 mmol/L (136-145)
[2024-03-01 07:40] LABS: Calcium 10.2 mg/dL (8.7-10.4)
[2024-03-01 07:45] LABS: BUN/Creatinine Ratio 22.2 (10.0-20.0); Blood Urea Nitrogen 34 mg/dL (9-23); Glucose 116 mg/dL (74-106)
[2024-03-01] MEDS: LACTATED RINGER'S 1,000 ML IV SCH (09:45)
[2024-03-01] MEDS: ONDANSETRON HCL 4 MG/2 ML VIAL IV PRN (13:18)
[2024-03-01] MEDS: HYDROmorphone HCL 2 MG/ML VL/or syr IV PRN (13:19)
[2024-03-02 05:00] VITALS: BP 141/69; PULSE 76; RESP 20; TEMP 98.7; O2SAT 96
[2024-03-02 06:32] LABS: Anion Gap 6 (5-15); Carbon Dioxide 24 mmol/L (20-30); Chloride 104 mmol/L (98-107); Potassium 4.3 mmol/L (3.5-5.1); Sodium 134 mmol/L (136-145)
[2024-03-02 06:34] LABS: Calcium 9.3 mg/dL (8.7-10.4)
[2024-03-02 06:38] LABS: BUN/Creatinine Ratio 27.2 (10.0-20.0); Blood Urea Nitrogen 31 mg/dL (9-23); Glucose 94 mg/dL (74-106)
[2024-03-02 06:43] LABS: Hematocrit 35.2 % (41.0-53.0); Hemoglobin 12.1 g/dL (13.5-17.5)
[2024-03-02 08:00] VITALS: PULSE 80; RESP 18
[2024-03-02 08:55] VITALS: BP 118/60; PULSE 80; RESP 20; TEMP 98.6; O2SAT 100
[2024-03-02] MEDS: cefTRIAXone 1GM/50ML D5W 50 ML IV ONE (09:28)
[2024-03-02] MEDS: HYDROcodone-ACET 10/325MG TAB PO PRN (10:20)
[2024-03-02 12:03] VITALS: BP 115/49; PULSE 85; RESP 20; TEMP 98.3; O2SAT 98
== END 2024-03-02 16:00 | disposition home health service (06) | DRG 469 ==
LOC: SUR 07:15 → OVERFLOW 09:41 → TELE 10:24 → TELE-CENTR 17:52 → CENTRAL 03-01 23:12
PROVIDERS: ADMIT Orthopaedic Surgery Adult Reconstructive Orthopaedic Surgery; ATTEND Internal Medicine
PROC: 0SRC0JZ Replacement of Right Knee Joint with Synthetic Substitute, Open Approach (ICD-10-PCS; principal; 2024-02-28 08:12)
DX: M17.11 Unilateral primary osteoarthritis, right knee (principal); N17.0 Acute kidney failure with tubular necrosis; Z68.41 Body mass index [BMI] 40.0-44.9, adult; I48.0 Paroxysmal atrial fibrillation; I10 Essential (primary) hypertension; E03.9 Hypothyroidism, unspecified; M10.9 Gout, unspecified; E66.01 Morbid (severe) obesity due to excess calories; M21.061 Valgus deformity, not elsewhere classified, right knee; Z79.899 Other long term (current) drug therapy
CPT/HCPCS: 36415; 73562; 80048; 80053; 84443; 85014; 85018; 85025; 85610; 85730; 86850; 86900; 86901; 97116; 97163; 97530; G0378; J0131; J0690; J1100; J1885; J2250; J2405; J3490

== ENCOUNTER → 2024-04-24 | Outpatient (CLI) | payer OTHER ==
[2024-04-24 12:15] LABS: Basophils # (auto) 0 10 ^3/uL (0-0.2); Basophils % (auto) 0.6 % (0.0-2.0); Eosinophils # (auto) 0.1 10 ^3/uL (0-0.8); Hematocrit 48.2 % (41.0-53.0); Hemoglobin 16.5 g/dL (13.5-17.5); Lymphocytes # (auto) 1.5 10 ^3/uL (0.4-5.4); Lymphocytes % (auto) 30.2 % (10.0-50.0); Mean Corpuscular Hemoglobin 30.7 pg (28.0-32.0); Mean Corpuscular Hgb Conc. 34.3 g/dL (32.0-36.0); Mean Corpuscular Volume 89.5 fL (80.0-100.0); Monocytes # (auto) 0.4 10 ^3/uL (0-1.3); Monocytes % (auto) 8.3 % (0.0-12.0); Neutrophils # (auto) 2.9 10 ^3/uL (1.6-8.6); Neutrophils % (auto) 57.9 % (37.0-80.0); Nucleated Red Blood Cells % 0.1 %; Platelet Count (auto) 446 10^3/uL (140-450); Red Blood Cells 5.39 10^6/uL (4.5-5.90); Red Cell Distribution Width 16.2 % (11.8-14.3)
[2024-04-24 13:27] LABS: Alanine Aminotransferase 17 U/L (7-40); Albumin 4.2 g/dL (3.2-4.8); Alkaline Phosphatase 106 U/L (46-116); Anion Gap 7 (5-15); Aspartate Aminotransferase 17 U/L (13-40); Bilirubin, Total 0.8 mg/dL (0.2-1.0); Calcium 10.2 mg/dL (8.7-10.4); Carbon Dioxide 28 mmol/L (20-31); Chloride 106 mmol/L (98-107); Glucose 89 mg/dL (74-106); Potassium 4.4 mmol/L (3.5-5.1); Sodium 141 mmol/L (136-145); Uric Acid 6.2 mg/dL (3.7-9.2)
[2024-04-24 13:28] LABS: Total Protein 6.6 g/dL (5.7-8.2)
[2024-04-24 13:58] LABS: BUN/Creatinine Ratio 14.7 (10.0-20.0); Blood Urea Nitrogen 15 mg/dL (9-23)
== END | disposition home or self-care (01) ==
LOC: LAB 11:54
PROVIDERS: ATTEND Internal Medicine
DX: Z12.11 Encounter for screening for malignant neoplasm of colon (principal); I10 Essential (primary) hypertension; E03.9 Hypothyroidism, unspecified; E66.9 Obesity, unspecified; E67.3 Hypervitaminosis D; R73.03 Prediabetes
CPT/HCPCS: 36415; 80053; 82270; 82306; 83036; 84550; 85025

== ENCOUNTER → 2024-07-25 | Outpatient (CLI) | payer OTHER | END | disposition home or self-care (01) | LOC: LAB 07:55 | PROVIDERS: ATTEND Internal Medicine | DX: E03.9 Hypothyroidism, unspecified (principal); E66.01 Morbid (severe) obesity due to excess calories | CPT/HCPCS: 36415; 82306; 84403; 84443 ==

== ENCOUNTER → 2024-10-26 | Outpatient (CLI) | payer OTHER ==
[2024-10-26 09:16] LABS: Creatinine, Urine 65.72 mg/dL (30.0-125.0)
[2024-10-26 09:22] LABS: Alanine Aminotransferase 22 U/L (7-40); Albumin 4.4 g/dL (3.2-4.8); Alkaline Phosphatase 98 U/L (46-116); Anion Gap 10 (5-15); Aspartate Aminotransferase 18 U/L (13-40); BUN/Creatinine Ratio 22.2 (10.0-20.0); Calcium 9.9 mg/dL (8.7-10.4); Carbon Dioxide 24 mmol/L (20-31); Chloride 105 mmol/L (98-107); Glucose 96 mg/dL (74-106); Potassium 4.2 mmol/L (3.5-5.1); Sodium 139 mmol/L (136-145); Total Protein 6.8 g/dL (5.7-8.2)
[2024-10-26 09:23] LABS: Bilirubin, Total 0.8 mg/dL (0.2-1.0)
[2024-10-26 09:35] LABS: Blood Urea Nitrogen 24 mg/dL (9-23)
== END | disposition home or self-care (01) ==
LOC: LAB 08:19
PROVIDERS: ATTEND Internal Medicine
DX: E03.9 Hypothyroidism, unspecified (principal); R73.03 Prediabetes; Z00.00 Encounter for general adult medical examination without abnormal findings
CPT/HCPCS: 36415; 80053; 82043; 82570; 83036; 84443